=== PATIENT | female | born 1995 | race Caucasian/White ===

== ENCOUNTER 2017-04-02 11:32 | Emergency (ER) | payer OTHER, MEDICAID ==
[2017-04-02] MEDS ORDERED: ASPIRIN 81 MG TABLET, CHEWABLE PO ONE (11:52)
[2017-04-02] MEDS ORDERED: IBUPROFEN 800 MG TABLET PO ONE (11:54)
[2017-04-02] MEDS ORDERED: LIDOCAINE 5% (700 MG) TRANSDERMAL ADH..PATCH TP ONE (11:54)
--- NOTE | 2017-04-02 11:59 | ER Document Report ---
ED Respiratory Problem - General Chief Complaint: Shortness Of Breath Stated Complaint: SHORTNESS OF BREATH Time Seen by Provider: 04/02/17 11:38 Mode of Arrival: Medic Information source: Patient Notes: Patient presents complaining of shortness of breath that started point. Patient started to develop right-sided chest pain around 9:00 this morning. Patient does report cough for the past 2 days. Patient denies any fever, nausea , or vomiting. Patient denies any recent bedrest or immobilization. Patient denies any history of DVT or PE. TRAVEL OUTSIDE OF THE [place] IN LAST 30 DAYS: No - HPI Patient complains to provider of: Chest pain, Cough, Short of breath Onset: This morning Duration: Continuous Quality of pain: Sharp Pain Level: 5 Context: Smoker. denies: DVT, Recent long distance trvl, Recent immobilization , Recent surgery Cough: Nonproductive Associated symptoms: Chest pain/discomfort, Cough, Hurts to breathe, Short of breath. denies: Congestion, Fever, Runny nose, Wheezing Similar symptoms previously: No Recently seen / treated by doctor: No - Related Data Allergies/Adverse Reactions: banana [Banana] Allergy (Severe, Verified 04/02/17 11:43) Anaphylaxis latex [Latex] Allergy (Severe, Verified 04/02/17 11:43) Anaphylaxis Penicillins Allergy (Severe, Verified 04/02/17 11:43) Anaphylaxis pineapple [Pineapple] Allergy (Severe, Verified 04/02/17 11:43) Anaphylaxis HONEYDEW Allergy (Severe, Uncoded 04/02/17 11:43) Anaphylaxis tdap Allergy (Severe, Uncoded 04/02/17 11:43) swelling Past Medical History - General Information source: Patient - Social History Smoking Status: Current Every Day Smoker Cigarette use (# per day): Yes Chew tobacco use (# tins/day): No Smoking Education Provided: Yes - for at least 3 min Frequency of alcohol use: Rare Drug Abuse: None Occupation: fresh foods technician Lives with: Spouse/Significant other Family History: CAD - father [place] 30's, g father [place] at 22 Patient has suicidal ideation: No Patient has homicidal ideation: No - Medical History Notes: Reviewed patient's medication list, patient not currently on any medications. - Past Medical History Cardiac Medical History: Reports: Other - anemia Renal/ Medical History: Denies: Hx Peritoneal Dialysis GI Medical History: Reports: Hx Gastroesophageal Reflux Disease Psychiatric Medical History: Reports: Hx Attention Deficit Hyperactivity Disorder, Hx Bipolar Disorder, Hx Depression - on meds Past Surgical History: Reports: Hx Section, Hx Tubal Ligation - Immunizations Immunizations up to date: Yes Hx Diphtheria, Pertussis, Tetanus Vaccination: Yes - 09/2013 Review of Systems - Review of Systems Constitutional: No symptoms reported. denies: Fever, Recent illness EENT: No symptoms reported Cardiovascular: Chest pain. denies: Syncope, Dizziness Respiratory: Cough, Hurts to breathe, Short of breath Gastrointestinal: No symptoms reported. denies: Abdominal pain, Diarrhea, Nausea, Vomiting Genitourinary: No symptoms reported Female Genitourinary: Irregular period - 5 menses over past 2 months Musculoskeletal: No symptoms reported. denies: Back pain Skin: No symptoms reported Hematologic/Lymphatic: No symptoms reported Neurological/Psychological: No symptoms reported Physical Exam - Vital signs Vitals: Pulse Ox 98 04/02/17 11:40 - General General appearance: Appears well, Alert In distress: None - HEENT Head: Normocephalic, Atraumatic Eyes: Normal Conjunctiva: Normal Nasal: Normal Mouth/Lips: Normal Mucous membranes: Normal Neck: Normal, Supple. No: Lymphadenopathy - Respiratory Respiratory status: No respiratory distress Chest status: Tender, Pain with deep breathing Breath sounds: Normal Chest palpation: Tender - Cardiovascular Rhythm: Regular Heart sounds: S1 appreciated, S2 appreciated Murmur: No - Abdominal Inspection: Normal Distension: No distension Bowel sounds: Normal Tenderness: Nontender Organomegaly: No organomegaly - Back Back: Normal, Nontender. No: CVA tenderness, Vertebra tenderness - Extremities General upper extremity: Normal inspection, Normal ROM General lower extremity: Normal inspection, Normal ROM - Neurological Neuro grossly intact: Yes Cognition: Normal Whipple Coma Scale Eye Opening: Spontaneous Poncho Coma Scale Verbal: Oriented Poncho Coma Scale Motor: Obeys Commands Poncho Coma Scale Total: 15 - Psychological Associated symptoms: Tearful - Skin Skin Temperature: Warm Skin Moisture: Dry Skin Color: Normal Course - Re-evaluation Re-evalutation: 04/02/17 13:30 Patient resting comfortably on stretcher joking with boyfriend. Vital signs stable. Patient PERC negative, The patient has atypical chest pain as the patient's chest pain is not suggestive of pulmonary embolus, cardiac ischemia, aortic dissection, or other serious etiology. Given the extremely low risk of these diagnoses for the test in evaluation for these possibilities does not appear to be indicated at this time. Patient has been instructed to return if the symptoms worsen or change in any way. HEART score 1, Risk: smoking 04/02/17 13:[address] Carter regarding patient presentation, reviewed diagnostic tests, Dr. Carter evaluated patient's EKG and agrees with discharge plan of care. - Vital Signs Vital signs: Temp Pulse Resp BP Pulse Ox 98.1 F 78 11 L 135/64 H 99 04/02/17 12:25 04/02/17 12:25 04/02/17 13:00 04/02/17 12:25 04/02/17 13:00 - Laboratory Result Diagrams: 04/02/17 11:49 04/02/17 11:49 Laboratory results interpreted by me: 04/02/17 04/02/17 11:49 11:49 Hgb 10.3 L Hct 32.2 L MCV 67 L MCH 21.5 L RDW 18.4 H AST 11 L Labs- Entire Visit 04/02/17 04/02/17 04/02/17 11:49 11:49 11:49 WBC 6.1 RBC 4.80 Hgb 10.3 L Hct 32.2 L MCV 67 L MCH 21.5 L MCHC 32.0 RDW 18.4 H Plt Count 208 Seg Neutrophils % 62.6 Lymphocytes % 29.8 Monocytes % 5.5 Eosinophils % 1.5 Basophils % 0.6 Absolute Neutrophils 3.8 Absolute Lymphocytes 1.8 Absolute Monocytes 0.3 Absolute Eosinophils 0.1 Absolute Basophils 0.0 D-Dimer Sodium 139.9 Potassium 4.0 Chloride 107 Carbon Dioxide 23 Anion Gap 10 BUN 8 Creatinine 0.72 Est GFR ( Amer) > 60 Est GFR (Non-Af Amer) > 60 Glucose 85 Calcium 9.2 Total Bilirubin 0.7 Direct Bilirubin 0.3 Indirect Bilirubin Not Reportable Neonat Total Bilirubin Not Reportable AST 11 L ALT 17 Alkaline Phosphatase 73 Creatine Kinase 49 CK-MB (CK-2) 0.41 Troponin I < 0.012 Total Protein 6.5 Albumin 4.0 Serum HCG, Qual 04/02/17 04/02/17 11:49 11:49 WBC RBC Hgb Hct MCV MCH MCHC RDW Plt Count Seg Neutrophils % Lymphocytes % Monocytes % Eosinophils % Basophils % Absolute Neutrophils Absolute Lymphocytes Absolute Monocytes Absolute Eosinophils Absolute Basophils D-Dimer < 0.27 Sodium Potassium Chloride Carbon Dioxide Anion Gap BUN Creatinine Est GFR ( Amer) Est GFR (Non-Af Amer) Glucose Calcium Total Bilirubin Direct Bilirubin Indirect Bilirubin Neonat Total Bilirubin AST ALT Alkaline Phosphatase Creatine Kinase CK-MB (CK-2) Troponin I Total Protein Albumin Serum HCG, Qual NEGATIVE 04/02/17 13:24 - Diagnostic Test Radiology reviewed: Reports reviewed - EKG Interpretation by Me EKG shows normal: Sinus rhythm Rate: Normal Rhythm: Arrthymia Discharge - Discharge Clinical Impression: Anemia Qualifiers: Anemia type: unspecified type Qualified Code(s): D64.9 - Anemia, unspecified Chest pain Qualifiers: Chest pain type: unspecified Qualified Code(s): R07.9 - Chest pain, unspecified Upper respiratory infection Qualifiers: URI type: unspecified URI Qualified Code(s): J06.9 - Acute upper respiratory infection, unspecified Condition: Stable Disposition: HOME, SELF-CARE Instructions: Upper Respiratory Illness ([facility]), Anemia ([facility]), Chest Pain of Unclear Cause ([facility]), Chest Wall Pain ([facility]) Additional Instructions: Return immediately for any new or worsening symptoms Followup with your primary care provider, call tomorrow to make a followup appointment Follow up with your oil filters inspector for evaluation of your irregular menses. You may use over the counter lidocaine patches as prescribed Prescriptions: Naproxen [Naprosyn 250 Nmg Tablet] 1 tab PO BID #14 tablet Forms: Smoking Cessation Education, Return to Work Referrals: [facility] [Provider Group] - Follow up in 3-5 days REZA SHINE MD [Primary Care Provider] - Follow up tomorrow
[2017-04-02 12:04] LABS: ABSOLUTE EOSINOPHILS # (AUTO) 0.1 10^3/uL (0.0-0.6); ABSOLUTE LYMPHOCYTES (AUTO) 1.8 10^3/uL (0.5-4.7); ABSOLUTE MONOCYTES (AUTO) 0.3 10^3/uL (0.1-1.4); ABSOLUTE NEUT (AUTO) 3.8 10^3/uL (1.7-8.2); BASOPHILS % (AUTO) 0.6 % (0-2); EOSINOPHILS % (AUTO) 1.5 % (0-6); HEMATOCRIT 32.2 % (36.0-47.0); HEMOGLOBIN 10.3 g/dL (12.0-15.5); HGB HCT DIFFERENCE -1.3; LYMPHOCYTES % (AUTO) 29.8 % (13-45); MEAN CORPUSCULAR HEMOGLOBIN 21.5 pg (27.0-33.4); MEAN CORPUSCULAR VOLUME 67 fl (80-97); MONOCYTES % (AUTO) 5.5 % (3-13); RED CELL DISTRIBUTION WIDTH 18.4 % (11.5-14.0); SEGMENTED NEUTROPHILS % (AUTO) 62.6 % (42-78); WHITE BLOOD COUNT 6.1 10^3/uL (4.0-10.5)
[2017-04-02 12:17] LABS: ALANINE AMINOTRANSFERASE 17 U/L (9-52); ALKALINE PHOSPHATASE 73 U/L (38-126); ANION GAP 10 (5-19); ASPARTATE AMINO TRANSFERASE 11 U/L (14-36); BILIRUBIN,DIRECT 0.3 mg/dL (0.0-0.4); BILIRUBIN,TOTAL 0.7 mg/dL (0.2-1.3); BLOOD UREA NITROGEN 8 mg/dL (7-20); CALCIUM 9.2 mg/dL (8.4-10.2); CARBON DIOXIDE 23 mmol/L (22-30); CHLORIDE 107 mmol/L (98-107); CREATINE KINASE 49 U/L (30-135); CREATININE RESULT 0.72 mg/dL (0.52-1.25); GLUCOSE 85 mg/dL (75-110); SODIUM 139.9 mmol/L (137-145); TOTAL PROTEIN 6.5 g/dL (6.3-8.2)
[2017-04-02 12:28] LABS: CREATINE KINASE MB 0.41 ng/mL (<4.55)
[2017-04-02 12:32] LABS: TROPONIN I < 0.012 ng/mL
--- NOTE | 2017-04-02 12:34 | RADIOLOGY REPORT (SQ) ---
EXAM DESCRIPTION: CHEST PA/LAT COMPLETED DATE/TIME: 04/02/2017 12:20 pm REASON FOR STUDY: cp, cough COMPARISON: December 2015 EXAM PARAMETERS: NUMBER OF VIEWS: two views TECHNIQUE: Digital Frontal and Lateral radiographic views of the chest acquired. RADIATION DOSE: NA LIMITATIONS: none FINDINGS: LUNGS AND PLEURA: No opacities, masses or pneumothorax. No pleural effusion. MEDIASTINUM AND HILAR STRUCTURES: No masses or contour abnormalities. HEART AND VASCULAR STRUCTURES: Heart normal size. No evidence for failure. BONES: No acute findings. HARDWARE: None in the chest. OTHER: No other significant finding. IMPRESSION: NO SIGNIFICANT RADIOGRAPHIC FINDING IN THE CHEST. TECHNICAL DOCUMENTATION: JOB ID: [id number] [employer]- All Rights Reserved
[2017-04-02] MEDS ORDERED: OXYCODONE-ACETAMINOPHEN 5-325 MG TABLET PO ONE (13:25)
[2017-04-02 14:01] VITALS: BP 100/58
--- NOTE | 2017-04-02 23:06 | EKG REPORT ---
SEVERITY:- OTHERWISE NORMAL ECG - SINUS ARRHYTHMIA, RATE 50-73 : Confirmed by: Violetta Bedoya 02-Apr-2017 23:06:20
== END 2017-04-02 13:51 | disposition home or self-care (01) ==
LOC: ER 11:32
DX: J06.9 Acute upper respiratory infection, unspecified (principal); D64.9 Anemia, unspecified; I49.9 Cardiac arrhythmia, unspecified; R06.02 Shortness of breath; R05 Cough; R07.1 Chest pain on breathing; R07.89 Other chest pain; N92.1 Excessive and frequent menstruation with irregular cycle; F17.210 Nicotine dependence, cigarettes, uncomplicated; Z71.6 Tobacco abuse counseling; Z87.892 Personal history of anaphylaxis; Z91.040 Latex allergy status; Z88.0 Allergy status to penicillin; Z91.013 Allergy to seafood; Z88.7 Allergy status to serum and vaccine; Z82.49 Family history of ischemic heart disease and other diseases of the circulatory system
CPT/HCPCS: 36415; 71020; 80053; 82550; 82553; 84484; 84703; 85025; 85379; 93005; 93010; 99285

== ENCOUNTER 2017-08-19 10:06 | Emergency (ER) | payer MEDICAID, OTHER ==
--- NOTE | 2017-08-19 10:20 | ER Document Report ---
ED Medical Screen (RME) - General Chief Complaint: Vaginal Bleeding Stated Complaint: VAGINAL BLEEDING AND PAIN Time Seen by Provider: 08/19/17 10:19 Notes: 22-year-old female who states some irregular uterine bleeding for 4 weeks. She denies any blood clots. She denies any dysuria. She does state some lightheadedness. She has had a tubal ligation in the past. She does state some runny nose, congestion, and vomiting 2. She denies any diarrhea. She states some intermittent low-grade "fevers". TRAVEL OUTSIDE OF THE [place] IN LAST 30 DAYS: No - Related Data Allergies/Adverse Reactions: banana [Banana] Allergy (Severe, Verified 08/19/17 10:14) Anaphylaxis latex [Latex] Allergy (Severe, Verified 08/19/17 10:14) Anaphylaxis Penicillins Allergy (Severe, Verified 08/19/17 10:14) Anaphylaxis pineapple [Pineapple] Allergy (Severe, Verified 08/19/17 10:14) Anaphylaxis HONEYDEW Allergy (Severe, Uncoded 04/02/17 11:43) Anaphylaxis tdap Allergy (Severe, Uncoded 04/02/17 11:43) swelling flu shot Allergy (Uncoded 08/19/17 10:14) Past Medical History - Past Medical History Cardiac Medical History: Reports: Hx Hypertension Renal/ Medical History: Denies: Hx Peritoneal Dialysis GI Medical History: Reports: Hx Gastroesophageal Reflux Disease Psychiatric Medical History: Reports: Hx Attention Deficit Hyperactivity Disorder, Hx Bipolar Disorder, Hx Depression - on meds Past Surgical History: Reports: Hx Section, Hx Tubal Ligation - Immunizations Immunizations up to date: Yes Hx Diphtheria, Pertussis, Tetanus Vaccination: Yes - 09/2013 Physical Exam - Vital signs Vitals: Temp Pulse Resp BP Pulse Ox 99.1 F 118 H 20 114/69 98 08/19/17 10:12 08/19/17 10:12 08/19/17 10:12 08/19/17 10:12 08/19/17 10:12 Course - Vital Signs Vital signs: Temp Pulse Resp BP Pulse Ox 99.1 F 118 H 20 114/69 98 08/19/17 10:12 08/19/17 10:12 08/19/17 10:12 08/19/17 10:12 08/19/17 10:12
--- NOTE | 2017-08-19 11:18 | ER Document Report ---
ED GI/ - General Chief Complaint: Vaginal Bleeding Stated Complaint: VAGINAL BLEEDING AND PAIN Time Seen by Provider: 08/19/17 10:19 Mode of Arrival: Ambulatory Information source: Patient TRAVEL OUTSIDE OF THE [place] IN LAST 30 DAYS: No - HPI Patient complains to provider of: Pelvic pain, Vaginal bleeding Onset: Other - 4 WEEKS Timing/Duration: Sudden Quality of pain: Cramping Severity at maximum: Moderate Severity in ED: No: Mild Context: denies: , Recent trauma Location: Pelvis - MORE ON LEFT Vaginal bleeding (Compared to normal period): Similar Menstrual period history: denies: : 3 Para: 3 Abortions: 0 Sexual history: Active Associated symptoms: denies: Chills, Diarrhea, Fever, Odor Exacerbated by: Coughing Relieved by: Remaining still Similar symptoms previously: Yes - LAST YEAR Recently seen / treated by doctor: No - Related Data Allergies/Adverse Reactions: banana [Banana] Allergy (Severe, Verified 08/19/17 10:14) Anaphylaxis latex [Latex] Allergy (Severe, Verified 08/19/17 10:14) Anaphylaxis Penicillins Allergy (Severe, Verified 08/19/17 10:14) Anaphylaxis pineapple [Pineapple] Allergy (Severe, Verified 08/19/17 10:14) Anaphylaxis HONEYDEW Allergy (Severe, Uncoded 04/02/17 11:43) Anaphylaxis tdap Allergy (Severe, Uncoded 04/02/17 11:43) swelling flu shot Allergy (Uncoded 08/19/17 10:14) Past Medical History - Social History Smoking Status: Current Every Day Smoker Chew tobacco use (# tins/day): No Frequency of alcohol use: None Drug Abuse: None Lives with: Spouse/Significant other Family History: CAD - father [place] 30's, g father [place] at 22 Patient has suicidal ideation: No Patient has homicidal ideation: No - Past Medical History Cardiac Medical History: Reports: Hx Hypertension Pulmonary Medical History: Reports: None EENT Medical History: Reports: None Neurological Medical History: Reports: None Endocrine Medical History: Reports: None Renal/ Medical History: Reports: None. Denies: Hx Peritoneal Dialysis Malignancy Medical History: Reports: None GI Medical History: Reports: Hx Gastroesophageal Reflux Disease Musculoskeltal Medical History: Reports None Psychiatric Medical History: Reports: Hx Attention Deficit Hyperactivity Disorder, Hx Bipolar Disorder, Hx Depression - on meds Traumatic Medical History: Reports: None Past Surgical History: Reports: Hx Section, Hx Tubal Ligation - Immunizations Immunizations up to date: Yes Hx Diphtheria, Pertussis, Tetanus Vaccination: Yes - 09/2013 Review of Systems - Review of Systems Constitutional: No symptoms reported EENT: No symptoms reported Cardiovascular: No symptoms reported Respiratory: No symptoms reported Gastrointestinal: No symptoms reported Genitourinary: No symptoms reported Female Genitourinary: See HPI Musculoskeletal: No symptoms reported Skin: No symptoms reported Neurological/Psychological: No symptoms reported Physical Exam - Vital signs Vitals: Temp Pulse Resp BP Pulse Ox 99.1 F 118 H 20 114/69 98 08/19/17 10:12 08/19/17 10:12 08/19/17 10:12 08/19/17 10:12 08/19/17 10:12 Interpretation: Tachycardic. No: Hypotensive, Tachypneic, Febrile - General General appearance: Appears well, Alert In distress: None - HEENT Head: Normocephalic Eyes: Normal Conjunctiva: Normal Ears: Normal Nasal: Normal Pharynx: Normal Neck: Normal - Respiratory Respiratory status: No respiratory distress - Cardiovascular Rhythm: Regular, Tachycardia - Abdominal Inspection: Normal Distension: No distension - Genitourinary External exam: Normal Speculum exam: Normal, Cervix closed Vaginal bleeding: None Bimanuel exam: Cervical motion tender, Adnexal tenderness - LEFT - Back Back: Normal - Extremities General upper extremity: Normal inspection General lower extremity: Normal inspection - Neurological Neuro grossly intact: Yes Cognition: Normal Orientation: AAOx4 - Psychological Associated symptoms: Normal affect, Normal mood - Skin Skin Temperature: Warm Skin Moisture: Dry Skin Color: Normal Skin Turgor: Elastic Course - Vital Signs Vital signs: Temp Pulse Resp BP Pulse Ox 99.1 F 118 H 20 114/69 98 08/19/17 10:12 08/19/17 10:12 08/19/17 10:12 08/19/17 10:12 08/19/17 10:12 - Laboratory Result Diagrams: 08/19/17 12:56 08/19/17 12:56 Laboratory results interpreted by me: 08/19/17 08/19/17 08/19/17 11:13 12:56 12:56 Hgb 11.4 L Hct 34.9 L MCV 73 L MCH 24.0 L RDW 16.9 H BUN 3 L Urine Ketones TRACE H Urine Urobilinogen 2.0 H Discharge - Discharge Clinical Impression: Menorrhagia with irregular cycle, Pelvic pain, Cervicitis Condition: Stable Disposition: HOME, SELF-CARE Instructions: Pelvic Pain ([facility]), Menorrhagia ([facility]), Doxycycline ([facility]), Oral Narcotic Medication ([facility]) Additional Instructions: REST, DRINK PLENTY OF FLUIDS. MEDS DIRECTED. FOLLOW UP WITH YOUR PRIMARY CARE PROVIDER OR RETURN TO E.R. IF PROBLEMS. Prescriptions: Hydrocodone/Acetaminophen [Sterling 5-325 mg Tablet] 1 tab PO Q4HP PRN #10 tablet PRN Reason: For Pain Doxycycline Monohydrate 100 mg PO BID #20 tablet
[2017-08-19 11:29] LABS: BACTERIA (WET MOUNT) 3+ BACTERIA SEEN; EPITHELIALS (WET MOUNT) 3+ EPITHELIALS SEEN; T.VAGINALIS (WET MOUNT) NO TRICHOMONAS SEEN; WBCS (WET MOUNT) FEW WBCS SEEN; YEAST (WET MOUNT) NO YEAST SEEN
[2017-08-19 11:42] LABS: APPEARANCE,URINE SLIGHTLY-CLOUDY; BILIRUBIN,URINE NEGATIVE (NEGATIVE); COLOR,URINE YELLOW; GLUCOSE, URINE NEGATIVE (NEGATIVE); KETONES,URINE TRACE mg/dL (NEGATIVE); LEUKOCYTE ESTERASE,URINE NEGATIVE (NEGATIVE); NITRITE,URINE NEGATIVE (NEGATIVE); PROTEIN,URINE NEGATIVE (NEGATIVE); URINE SPECIFIC GRAVITY 1.016
--- NOTE | 2017-08-19 12:21 | RADIOLOGY REPORT (SQ) ---
EXAM DESCRIPTION: U/S NON OB PEL W/DOPPLER COMPLETED DATE/TIME: 08/19/2017 12:11 pm REASON FOR STUDY: L. PELVIC PAIN, MENORRHAGIA, S/P BTL COMPARISON: None. TECHNIQUE: Dynamic and static grayscale images acquired of the pelvis via transabdominal approach an d recorded on PACS. Additional selected color Doppler and spectral images recorded. LIMITATIONS: None. FINDINGS: UTERUS: Contour normal. No mass. ENDOMETRIAL STRIPE: Normal size. Minimal fluid. CERVIX: No nabothian cysts. RIGHT OVARY: No abnormal masses. RIGHT OVARY DOPPLER: Normal arterial vascular flow without evidence for torsion. LEFT OVARY: No abnormal masses. LEFT OVARY DOPPLER: Normal arterial vascular flow without evidence for torsion. FREE FLUID: None noted. OTHER: No other significant finding. MEASUREMENTS: UTERUS: 9.4 x 5.6 x 4.8 cm ENDOMETRIAL STRIPE: 8 mm RIGHT OVARY: 3.2 x 2.2 x 2.5 cm LEFT OVARY: 2.6 x 2.4 x 2.1 cm IMPRESSION: NORMAL PELVIC ULTRASOUND BY TRANSABDOMINAL TECHNIQUE. TECHNICAL DOCUMENTATION: JOB ID: [id number]- All Rights Reserved
[2017-08-19 12:57] LABS: CHLAM PCR NOT DETECTED (NOT DETECT); GON PCR NOT DETECTED (NOT DETECT)
[2017-08-19 13:11] LABS: ABSOLUTE EOSINOPHILS # (AUTO) 0.1 10^3/uL (0.0-0.6); ABSOLUTE LYMPHOCYTES (AUTO) 1.7 10^3/uL (0.5-4.7); ABSOLUTE MONOCYTES (AUTO) 0.6 10^3/uL (0.1-1.4); ABSOLUTE NEUT (AUTO) 6.9 10^3/uL (1.7-8.2); BASOPHILS % (AUTO) 0.3 % (0-2); EOSINOPHILS % (AUTO) 0.9 % (0-6); HEMATOCRIT 34.9 % (36.0-47.0); HEMOGLOBIN 11.4 g/dL (12.0-15.5); LYMPHOCYTES % (AUTO) 17.9 % (13-45); MEAN CORPUSCULAR HGB CONC 32.7 g/dL (32.0-36.0); MEAN CORPUSCULAR VOLUME 73 fl (80-97); MONOCYTES % (AUTO) 6.6 % (3-13); PLATELET COUNT 205 10^3/uL (150-450); RED BLOOD COUNT 4.75 10^6/uL (3.72-5.28); RED CELL DISTRIBUTION WIDTH 16.9 % (11.5-14.0); SEGMENTED NEUTROPHILS % (AUTO) 74.3 % (42-78); TOTAL CELLS COUNTED % (AUTO) 100 %; WHITE BLOOD COUNT 9.3 10^3/uL (4.0-10.5)
[2017-08-19 13:29] LABS: ANION GAP 12 (5-19); BLOOD UREA NITROGEN 3 mg/dL (7-20); CALCIUM 9.6 mg/dL (8.4-10.2); CARBON DIOXIDE 24 mmol/L (22-30); CHLORIDE 104 mmol/L (98-107); GLUCOSE 87 mg/dL (75-110); POTASSIUM 3.9 mmol/L (3.6-5.0); SODIUM 139.5 mmol/L (137-145)
[2017-08-19 15:04] VITALS: BP 91/52
== END 2017-08-19 15:04 | disposition home or self-care (01) ==
LOC: ER 10:06
DX: N92.1 Excessive and frequent menstruation with irregular cycle (principal); N72 Inflammatory disease of cervix uteri; R10.2 Pelvic and perineal pain; R00.0 Tachycardia, unspecified; I10 Essential (primary) hypertension; F17.200 Nicotine dependence, unspecified, uncomplicated; Z88.7 Allergy status to serum and vaccine; Z87.892 Personal history of anaphylaxis; Z91.018 Allergy to other foods; Z91.040 Latex allergy status; Z88.0 Allergy status to penicillin; Z98.51 Tubal ligation status
CPT/HCPCS: 36415; 76856; 80048; 81001; 84703; 85025; 87210; 87491; 87591; 93976; 99284

== ENCOUNTER 2017-12-19 11:52 | Emergency (ER) | payer OTHER ==
[2017-12-19 11:59] VITALS: BP 115/59
--- NOTE | 2017-12-19 12:25 | ER Document Report ---
HPI - HPI Patient complains to provider of: Twisted left ankle Onset: Other - Monday Onset/Duration: Sudden Pain Level: 4 Context: 22-year-old female twisted left ankle on a greasy floor at work. She is swelling and pain to her left ankle although she can walk on it. Associated Symptoms: None Exacerbated by: Walking Relieved by: Denies Similar symptoms previously: No Recently seen / treated by doctor: No - ROS ROS below otherwise negative: Yes Systems Reviewed and Negative: Yes All other systems reviewed and negative - REPRODUCTIVE Reproductive: DENIES: : Past Medical History - General Information source: Patient - Social History Smoking Status: Current Every Day Smoker Frequency of alcohol use: Occasional Drug Abuse: None Occupation: [employer] Lives with: Spouse/Significant other Family History: CAD - father [place] 30's, g father [place] at 22 - Past Medical History Cardiac Medical History: Reports: None Renal/ Medical History: Denies: Hx Peritoneal Dialysis GI Medical History: Reports: Hx Gastroesophageal Reflux Disease Psychiatric Medical History: Reports: Hx Attention Deficit Hyperactivity Disorder, Hx Bipolar Disorder, Hx Depression - on meds Past Surgical History: Reports: Hx Section, Hx Tubal Ligation - Immunizations Immunizations up to date: Yes Hx Diphtheria, Pertussis, Tetanus Vaccination: Yes - 09/2013 Vertical Provider Document - CONSTITUTIONAL Agree With Documented VS: Yes Exam Limitations: No Limitations General Appearance: No Apparent Distress - INFECTION CONTROL TRAVEL OUTSIDE OF THE [place] IN LAST 30 DAYS: No - HEENT HEENT: Normocephalic - NECK Neck: Supple - MUSCULOSKELETAL/EXTREMETIES Musculoskeletal/Extremeties: MAEW, FROM, Tender - Mild swelling to the lateral left malleolus Notes: Nontender base of the fifth metatarsal and medial malleolus - NEURO Level of Consciousness: Awake, Alert Motor/Sensory: No Motor Deficit, No Sensory Deficit - DERM Integumentary: Warm, Dry, No Rash Course - Re-evaluation Re-evalutation: 12/19/17 12:25 Pre-limb x-rays are negative - Vital Signs Vital signs: Temp Pulse Resp BP Pulse Ox 98.7 F 87 16 115/59 L 97 12/19/17 11:58 12/19/17 11:58 12/19/17 11:58 12/19/17 11:58 12/19/17 11:58 Procedures - Immobilization Left Ankle Time completed: 11:30 Pre-Proc Neuro Vasc Exam: Normal Immobilizer type: Ankle stirrup, Crutches Performed by: PCT Post-Proc Neuro Vasc Exam: Normal Alignment checked and good: Yes Discharge - Discharge Clinical Impression: left ankle sprain Condition: Good Disposition: HOME, SELF-CARE Instructions: Ankle Stirrup Splint ([facility]), Use of Crutches ([facility]), Ibuprofen ( General) ([facility]), Sprained Ankle ([facility]) Additional Instructions: stirrup splint and crutches motrin tylenol see orthopedic doctor if persists Prescriptions: Ibuprofen [Motrin 800 mg Tablet] 800 mg PO Q8HP PRN #30 tablet PRN Reason: Forms: Return to Work
[2017-12-19] MEDS ORDERED: IBUPROFEN 800 MG TABLET PO ONE (12:29)
[2017-12-19] MEDS ORDERED: ONDANSETRON 4 MG TAB.RAPDIS PO ONE (12:29)
--- NOTE | 2017-12-19 12:49 | RADIOLOGY REPORT (SQ) ---
EXAM DESCRIPTION: ANKLE LEFT COMPLETE COMPLETED DATE/TIME: 12/19/2017 12:37 pm REASON FOR STUDY: injury COMPARISON: None. NUMBER OF VIEWS: Three views. TECHNIQUE: AP, lateral, and oblique radiographic images acquired of the left ankle. LIMITATIONS: None. FINDINGS: MINERALIZATION: Normal. BONES: No acute fracture or dislocation. No worrisome bone lesions. JOINTS: No effusions. SOFT TISSUES: No soft tissue swelling. No foreign body. OTHER: No other significant finding. IMPRESSION: NEGATIVE STUDY OF THE LEFT ANKLE. NO RADIOGRAPHIC EVIDENCE OF ACUTE INJURY. TECHNICAL DOCUMENTATION: JOB ID: [id number] [employer]- All Rights Reserved Reading location - IP/workstation name: [email or web address]
--- NOTE | 2017-12-19 12:51 | RADIOLOGY REPORT (SQ) ---
EXAM DESCRIPTION: FOOT LEFT COMPLETE COMPLETED DATE/TIME: 12/19/2017 12:37 pm REASON FOR STUDY: injury COMPARISON: None. NUMBER OF VIEWS: Three views. TECHNIQUE: AP, lateral and oblique radiographic images acquired of the left foot. LIMITATIONS: None. FINDINGS: MINERALIZATION: Normal. BONES: No acute fracture or dislocation. No worrisome bone lesions. JOINTS: No effusions. SOFT TISSUES: No soft tissue swelling. No foreign body. OTHER: No other significant finding. IMPRESSION: NEGATIVE STUDY OF THE LEFT FOOT. NO RADIOGRAPHIC EVIDENCE OF ACUTE INJURY. TECHNICAL DOCUMENTATION: JOB ID: [id number] [employer]- All Rights Reserved Reading location - IP/workstation name: [email or web address]
== END 2017-12-19 12:44 | disposition home or self-care (01) ==
LOC: ER 11:52
DX: S93.402A Sprain of unspecified ligament of left ankle, initial encounter (principal); X50.1XXA Overexertion from prolonged static or awkward postures, initial encounter; Y92.511 Restaurant or cafe as the place of occurrence of the external cause; Y99.0 Civilian activity done for income or pay; F17.200 Nicotine dependence, unspecified, uncomplicated
CPT/HCPCS: 99283; 73610; 73630; L1902; S0119

== ENCOUNTER 2019-01-20 12:23 | Emergency (ER) | payer OTHER ==
[2019-01-20 12:30] VITALS: BP 131/72
[2019-01-20] MEDS ORDERED: PROMETHAZINE HCL 25 MG TABLET PO ONE (12:50)
--- NOTE | 2019-01-20 12:52 | ER Document Report ---
ED Medical Screen (RME) - General Chief Complaint: Abdominal Cramping Stated Complaint: ABNORMAL MENSES Time Seen by Provider: 01/20/19 12:50 Mode of Arrival: Ambulatory Information source: Patient Notes: Patient states that her last menstrual period was in November. Patient is concerned she may be although she has had a tubal ligation. Patient denies any urinary symptoms vaginal bleeding or discharge. Patient does complain of right lower pelvic tenderness started yesterday with nausea. I have greeted and performed a rapid initial assessment of this patient. A comprehensive ED assessment and evaluation of the patient, analysis of test results and completion of the medical decision making process will be conducted by additional ED providers. TRAVEL OUTSIDE OF THE [place] IN LAST 30 DAYS: No - Related Data Allergies/Adverse Reactions: banana [Banana] Allergy (Severe, Verified 12/19/17 11:54) Anaphylaxis latex [Latex] Allergy (Severe, Verified 12/19/17 11:54) Anaphylaxis Penicillins Allergy (Severe, Verified 12/19/17 11:54) Anaphylaxis pineapple [Pineapple] Allergy (Severe, Verified 12/19/17 11:54) Anaphylaxis HONEYDEW Allergy (Severe, Uncoded 04/02/17 11:43) Anaphylaxis tdap Allergy (Severe, Uncoded 04/02/17 11:43) swelling flu shot Allergy (Uncoded 08/19/17 10:14) Past Medical History - Past Medical History Cardiac Medical History: Reports: Hx Hypertension Renal/ Medical History: Denies: Hx Peritoneal Dialysis GI Medical History: Reports: Hx Gastroesophageal Reflux Disease Psychiatric Medical History: Reports: Hx Attention Deficit Hyperactivity Disorder, Hx Bipolar Disorder, Hx Depression - on meds Past Surgical History: Reports: Hx Section, Hx Tubal Ligation - Immunizations Immunizations up to date: Yes Hx Diphtheria, Pertussis, Tetanus Vaccination: Yes - 09/2013 Physical Exam - Vital signs Vitals: Temp Pulse Resp BP Pulse Ox 98.6 F 86 16 131/72 H 98 01/20/19 12:27 01/20/19 12:27 01/20/19 12:27 01/20/19 12:01/20/19 12:27 - Abdominal Tenderness: Tender - Right lower pelvic Course - Vital Signs Vital signs: Temp Pulse Resp BP Pulse Ox 98.6 F 86 16 131/72 H 98 01/20/19 12:27 01/20/19 12:27 01/20/19 12:27 01/20/19 12:27 01/20/19 12:27
[2019-01-20 14:25] LABS: ABSOLUTE EOSINOPHILS # (AUTO) 0.1 10^3/uL (0.0-0.6); ABSOLUTE LYMPHOCYTES (AUTO) 1.6 10^3/uL (0.5-4.7); ABSOLUTE MONOCYTES (AUTO) 0.5 10^3/uL (0.1-1.4); ABSOLUTE NEUT (AUTO) 4.4 10^3/uL (1.7-8.2); BASOPHILS % (AUTO) 0.4 % (0-2); HEMATOCRIT 36.1 % (36.0-47.0); HEMOGLOBIN 11.5 g/dL (12.0-15.5); LYMPHOCYTES % (AUTO) 24.1 % (13-45); MEAN CORPUSCULAR HGB CONC 31.8 g/dL (32.0-36.0); MEAN CORPUSCULAR VOLUME 69 fl (80-97); MONOCYTES % (AUTO) 7.1 % (3-13); PLATELET COUNT 230 10^3/uL (150-450); RED BLOOD COUNT 5.23 10^6/uL (3.72-5.28); RED CELL DISTRIBUTION WIDTH 19.3 % (11.5-14.0); SEGMENTED NEUTROPHILS % (AUTO) 67.4 % (42-78); TOTAL CELLS COUNTED % (AUTO) 100 %; WHITE BLOOD COUNT 6.5 10^3/uL (4.0-10.5)
[2019-01-20 14:48] LABS: ALANINE AMINOTRANSFERASE 14 U/L (9-52); ALBUMIN 4.5 g/dL (3.5-5.0); ALKALINE PHOSPHATASE 73 U/L (38-126); ANION GAP 12 (5-19); ASPARTATE AMINO TRANSFERASE 14 U/L (14-36); BILIRUBIN,DIRECT 0.2 mg/dL (0.0-0.4); BILIRUBIN,TOTAL 0.4 mg/dL (0.2-1.3); BLOOD UREA NITROGEN 14 mg/dL (7-20); CALCIUM 9.5 mg/dL (8.4-10.2); CARBON DIOXIDE 26 mmol/L (22-30); CHLORIDE 104 mmol/L (98-107); POTASSIUM 4.6 mmol/L (3.6-5.0); SODIUM 141.5 mmol/L (137-145); TOTAL PROTEIN 7.5 g/dL (6.3-8.2)
[2019-01-20 14:52] LABS: GLUCOSE 62 mg/dL (75-110)
[2019-01-20 15:24] LABS: AMORPHOUS SEDIMENT,URINE TRACE /HPF; APPEARANCE,URINE SLIGHTLY-CLOUDY; BILIRUBIN,URINE NEGATIVE (NEGATIVE); COLOR,URINE YELLOW; GLUCOSE, URINE NEGATIVE (NEGATIVE); KETONES,URINE NEGATIVE (NEGATIVE); LEUKOCYTE ESTERASE,URINE NEGATIVE (NEGATIVE); NITRITE,URINE NEGATIVE (NEGATIVE); PROTEIN,URINE NEGATIVE (NEGATIVE); URINE SPECIFIC GRAVITY 1.025
[2019-01-20 16:50] LABS: CHLAM PCR NOT DETECTED (NOT DETECT); GON PCR NOT DETECTED (NOT DETECT)
== END 2019-01-20 14:51 | disposition left against medical advice (07) ==
LOC: ER 12:23
DX: R10.819 Abdominal tenderness, unspecified site (principal); R11.0 Nausea; I10 Essential (primary) hypertension; Z91.018 Allergy to other foods; Z87.892 Personal history of anaphylaxis; Z91.040 Latex allergy status; Z88.0 Allergy status to penicillin; Z88.7 Allergy status to serum and vaccine; Z87.19 Personal history of other diseases of the digestive system; Z98.51 Tubal ligation status; Z53.20 Procedure and treatment not carried out because of patient's decision for unspecified reasons
CPT/HCPCS: 36415; 80053; 81001; 84703; 85025; 87491; 87591; 99284

== ENCOUNTER 2019-02-28 00:03 | Emergency (ER) | payer OTHER ==
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
[2019-02-28 01:05] LABS: ABSOLUTE EOSINOPHILS # (AUTO) 0.1 10^3/uL (0.0-0.6); ABSOLUTE MONOCYTES (AUTO) 0.5 10^3/uL (0.1-1.4); ABSOLUTE NEUT (AUTO) 6.1 10^3/uL (1.7-8.2); BASOPHILS % (AUTO) 0.4 % (0-2); EOSINOPHILS % (AUTO) 0.8 % (0-6); HEMATOCRIT 33.5 % (36.0-47.0); HEMOGLOBIN 10.9 g/dL (12.0-15.5); LYMPHOCYTES % (AUTO) 22.9 % (13-45); MEAN CORPUSCULAR HEMOGLOBIN 22.8 pg (27.0-33.4); MEAN CORPUSCULAR HGB CONC 32.4 g/dL (32.0-36.0); MEAN CORPUSCULAR VOLUME 70 fl (80-97); MONOCYTES % (AUTO) 5.3 % (3-13); PLATELET COUNT 246 10^3/uL (150-450); RED BLOOD COUNT 4.76 10^6/uL (3.72-5.28); RED CELL DISTRIBUTION WIDTH 19.9 % (11.5-14.0); SEGMENTED NEUTROPHILS % (AUTO) 70.6 % (42-78); TOTAL CELLS COUNTED % (AUTO) 100 %; WHITE BLOOD COUNT 8.6 10^3/uL (4.0-10.5)
[2019-02-28 01:25] LABS: ALANINE AMINOTRANSFERASE 8 U/L (9-52); ALBUMIN 4.3 g/dL (3.5-5.0); ALKALINE PHOSPHATASE 77 U/L (38-126); ANION GAP 7 (5-19); ASPARTATE AMINO TRANSFERASE 26 U/L (14-36); BILIRUBIN,DIRECT 0.4 mg/dL (0.0-0.4); BILIRUBIN,TOTAL 0.4 mg/dL (0.2-1.3); BLOOD UREA NITROGEN 8 mg/dL (7-20); CALCIUM 9.2 mg/dL (8.4-10.2); CARBON DIOXIDE 26 mmol/L (22-30); CHLORIDE 106 mmol/L (98-107); GLUCOSE 80 mg/dL (75-110); TOTAL PROTEIN 7.1 g/dL (6.3-8.2)
--- NOTE | 2019-02-28 01:48 | RADIOLOGY REPORT (SQ) ---
CLINICAL HISTORY: vaginal bleeding, eval ectopic COMPARISON: None. TECHNIQUE: US TRANSVAGINAL on 02/28/2019 12:44 AM CDT FINDINGS: Uterus measures 8.3 cm cervix measures 2.1 cm. Right ovary is unremarkable with patent flow. Left ovary is not seen. IMPRESSION: No evidence of IUP. Ectopic is not seen nor can be excluded.
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
[2019-02-28 02:47] VITALS: BP 116/65
== END 2019-02-28 03:07 | disposition home or self-care (01) ==
LOC: ER 00:03
DX: S93.412A Sprain of calcaneofibular ligament of left ankle, initial encounter (principal); S60.211A Contusion of right wrist, initial encounter; S30.0XXA Contusion of lower back and pelvis, initial encounter; M25.551 Pain in right hip; M79.641 Pain in right hand; Y04.8XXA Assault by other bodily force, initial encounter; Z87.892 Personal history of anaphylaxis; F17.210 Nicotine dependence, cigarettes, uncomplicated; I10 Essential (primary) hypertension; Z91.018 Allergy to other foods; Z91.040 Latex allergy status; Z88.0 Allergy status to penicillin; Z88.7 Allergy status to serum and vaccine
CPT/HCPCS: 99284; 86900; 86901; 36415; 84702; 85025; 80053; 73610; 73030; 73110; 76817; L1902

== ENCOUNTER 2020-06-20 17:24 | Emergency (ER) | payer OTHER ==
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
[2020-06-20 18:46] LABS: ABSOLUTE EOSINOPHILS # (AUTO) 0.1 10^3/uL (0.0-0.6); ABSOLUTE LYMPHOCYTES (AUTO) 1.4 10^3/uL (0.5-4.7); ABSOLUTE MONOCYTES (AUTO) 0.6 10^3/uL (0.1-1.4); ABSOLUTE NEUT (AUTO) 6.5 10^3/uL (1.7-8.2); BASOPHILS % (AUTO) 0.3 % (0-2); EOSINOPHILS % (AUTO) 1.3 % (0-6); HEMATOCRIT 34.4 % (36.0-47.0); HEMOGLOBIN 10.8 g/dL (12.0-15.5); LYMPHOCYTES % (AUTO) 16.4 % (13-45); MEAN CORPUSCULAR HEMOGLOBIN 21.1 pg (27.0-33.4); MEAN CORPUSCULAR HGB CONC 31.5 g/dL (32.0-36.0); MEAN CORPUSCULAR VOLUME 67 fl (80-97); MONOCYTES % (AUTO) 7.4 % (3-13); PLATELET COUNT 211 10^3/uL (150-450); RED BLOOD COUNT 5.13 10^6/uL (3.72-5.28); RED CELL DISTRIBUTION WIDTH 17.9 % (11.5-14.0); SEGMENTED NEUTROPHILS % (AUTO) 74.6 % (42-78); TOTAL CELLS COUNTED % (AUTO) 100 %; WHITE BLOOD COUNT 8.7 10^3/uL (4.0-10.5)
[2020-06-20 19:00] LABS: APPEARANCE,URINE SLIGHTLY-CLOUDY; BILIRUBIN,URINE NEGATIVE (NEGATIVE); COLOR,URINE YELLOW; GLUCOSE, URINE NEGATIVE (NEGATIVE); KETONES,URINE NEGATIVE (NEGATIVE); LEUKOCYTE ESTERASE,URINE NEGATIVE (NEGATIVE); NITRITE,URINE NEGATIVE (NEGATIVE); PROTEIN,URINE NEGATIVE (NEGATIVE); URINE SPECIFIC GRAVITY 1.016
[2020-06-20 19:03] LABS: ALBUMIN 4.5 g/dL (3.5-5.0); ALKALINE PHOSPHATASE 73 U/L (38-126); ANION GAP 12 (5-19); ASPARTATE AMINO TRANSFERASE 16 U/L (14-36); BILIRUBIN,DIRECT 0.2 mg/dL (0.0-0.4); BILIRUBIN,TOTAL 0.4 mg/dL (0.2-1.3); BLOOD UREA NITROGEN 10 mg/dL (7-20); CALCIUM 9.4 mg/dL (8.4-10.2); CARBON DIOXIDE 24 mmol/L (22-30); CHLORIDE 105 mmol/L (98-107); GLUCOSE 96 mg/dL (75-110); POTASSIUM 4.4 mmol/L (3.6-5.0)
--- NOTE | 2020-06-20 19:05 | RADIOLOGY REPORT (SQ) ---
EXAM DESCRIPTION: FOOT RIGHT COMPLETE IMAGES COMPLETED DATE/TIME: 06/20/2020 6:48 pm REASON FOR STUDY: Pain to foot, also to the third toe, foot red COMPARISON: None. NUMBER OF VIEWS: Three views. TECHNIQUE: AP, lateral and oblique radiographic images acquired of the right foot. LIMITATIONS: None. FINDINGS: MINERALIZATION: Normal. BONES: No acute fracture or dislocation. No worrisome bone lesions. JOINTS: No effusions. SOFT TISSUES: Forefoot swelling. No foreign body. OTHER: No other significant finding. IMPRESSION: Forefoot swelling. TECHNICAL DOCUMENTATION: JOB ID: [id number] 2010 [employer]- All Rights Reserved Reading location - IP/workstation name: [email or web address]
--- NOTE | 2020-06-20 20:57 | ER Document Report ---
ED General - General Chief Complaint: Wound Infection Stated Complaint: Infected foot Time Seen by Provider: 06/20/20 17:53 Primary Care Provider: SANYA TATUM [Primary Care Provider] - Follow up as needed LAYLA FROST MD [HONORARY] - 06/22/20 Mode of Arrival: Wheelchair TRAVEL OUTSIDE OF THE [place] IN LAST 30 DAYS: No - HPI Context: This is a 25-year-old female presenting to the emergency department complaining of pain and swelling in her right foot. Patient states the symptoms started approximately 2 days ago. Patient states the top of her right foot with one of his falls 2 days ago which created a punctate injury with it according to the patient. Patient states that she has been trying to avoid coming to the hospital and has been soaking the foot and squeezing the foot and has been able to express some purulent material from the whole where the injury happened. Patient states that a pain is worse now since she stepped in a hole prior to presentation and twisted her foot. Patient is concerned she may have broken one of her toes. Also the patient states that the foot is more erythematous now involving part of the dorsum of the foot as well as the base of the second and third right toes. Patient states the pain is a 3 out of 5 and describes it as throbbing. Patient states there are no alleviating factors and her symptoms are exacerbated by touch and weightbearing. Patient is allergic to penicillin and amoxicillin. As well as Tdap. Associated symptoms: Other - See HPI Exacerbated by: Other - See HPI Relieved by: Other - See HPI - Related Data Allergies/Adverse Reactions: banana [Banana] Allergy (Severe, Verified 02/28/19 00:10) Anaphylaxis latex [Latex] Allergy (Severe, Verified 02/28/19 00:10) Anaphylaxis Penicillins Allergy (Severe, Verified 02/28/19 00:10) Anaphylaxis pineapple [Pineapple] Allergy (Severe, Verified 02/28/19 00:10) Anaphylaxis HONEYDEW Allergy (Severe, Uncoded 02/28/19 00:10) Anaphylaxis tdap Allergy (Severe, Uncoded 02/28/19 00:10) swelling flu shot Allergy (Uncoded 02/28/19 00:10) Past Medical History - General Information source: Patient - Social History Smoking Status: Unknown if Ever Smoked Lives with: Spouse/Significant other Family History: Reviewed & Not Pertinent, CAD - father [place] 30's, g father [place] at 22 Patient has suicidal ideation: No Patient has homicidal ideation: No - Past Medical History Cardiac Medical History: Reports: Hx Hypertension Renal/ Medical History: Denies: Hx Peritoneal Dialysis GI Medical History: Reports: Hx Gastroesophageal Reflux Disease Skin Medical History: Reports Hx Cellulitis Psychiatric Medical History: Reports: Hx Attention Deficit Hyperactivity Disorder, Hx Bipolar Disorder, Hx Depression - on meds Past Surgical History: Reports: Hx Section, Hx Tubal Ligation - Immunizations Immunizations up to date: Yes Hx Diphtheria, Pertussis, Tetanus Vaccination: Yes - 09/2013 Review of Systems - Review of Systems Constitutional: No symptoms reported EENT: No symptoms reported Cardiovascular: No symptoms reported Respiratory: No symptoms reported Gastrointestinal: No symptoms reported Genitourinary: No symptoms reported Female Genitourinary: No symptoms reported Musculoskeletal: Other - Foot pain and swelling Skin: See HPI Hematologic/Lymphatic: No symptoms reported Neurological/Psychological: No symptoms reported -: Yes All other systems reviewed and negative Physical Exam - Vital signs Vitals: Temp Pulse Resp BP Pulse Ox 99.0 F 93 18 116/62 98 06/20/20 17:36 06/20/20 17:36 06/20/20 17:36 06/20/20 17:36 06/20/20 17:36 - Notes Notes: CONSTITUTIONAL [Vital signs reviewed, Patient appears comfortable, Alert and oriented X 3, Normal stature.] HEAD [Atraumatic, Normocephalic.] EYES [Eyes are normal to inspection, No discharge from eyes, Extraocular muscles intact, Sclera are normal, Conjunctiva are normal.] ENT , Nose examination normal, Mouth normal to inspection.] NECK [Normal ROM, No jugular venous distention, No meningeal signs, no carotid bruit.] RESPIRATORY CHEST [Chest is nontender, Breath sounds normal, No respiratory distress.] CARDIOVASCULAR [RRR, No murmurs, Normal S1 S2, No rub, No gallop.] ABDOMEN [Abdomen is nontender, No pulsatile masses, No other masses, Bowel sounds normal, No distension, No peritoneal signs, No hernias.] BACK [There is no CVA Tenderness, There is no tenderness to palpation, Normal inspection.] UPPER EXTREMITY [Inspection normal, No cyanosis, No clubbing, No edema, 2+ radial pulses.] LOWER EXTREMITY Lower extremity exam is significant for swelling on the dorsal surface of the right foot there is a punctate lesion at the base of the second toe that is expressing some serous and mildly purulent discharge spontaneously the surrou nding area of the foot on the dorsal surface is significant for erythema and edema there is no definite fluctuance, pointing or induration palpation area does elicit pain. Palpation of the area does not elicit expression of purulent material from the puncture site. NEURO [No focal motor deficits, No focal sensory deficits, Speech normal.] SKIN [Skin is warm, Skin is dry, Skin is normal color.] PSYCHIATRIC [Normal affect. ] Course - Re-evaluation Re-evalutation: 06/20/20 21:25 Results of ED MSE discussed with patient. Options for treatment including ultrasound and possible incision and drainage discussed with patient. Patient states that she would just as soon avoid any type of incision and drainage. This MD feels that this is not unreasonable given that she has a area that is spontaneously draining and the patient and this physician agreed to start initially with pain control and antibiotic treatment and crutches to alleviate pain. Patient was instructed very specifically about signs and symptoms to look for and reasons to return to the emergency department, such as worsening pain, worsening swelling, worsening erythema or edema. Patient was encouraged to keep using warm moist compresses but not to submerge the wound under water. All questions were answered prior to discharge. Patient states she understood emergency signs and symptoms as they were explained to her. Patient states she had no further questions at time of discharge. - Vital Signs Vital signs: Temp Pulse Resp BP Pulse Ox 99.0 F 93 18 116/62 98 06/20/20 17:36 06/20/20 17:36 06/20/20 17:36 06/20/20 17:36 06/20/20 17:36 - Laboratory Result Diagrams: 06/20/20 18:25 06/20/20 18:25 Laboratory results interpreted by me: 06/20/20 06/20/20 18:25 18:35 Hgb 10.8 L Hct 34.4 L MCV 67 L MCH 21.1 L MCHC 31.5 L RDW 17.9 H Urine Urobilinogen 2.0 H Urine Ascorbic Acid 20 H - Diagnostic Test Radiology reviewed: Reports reviewed Discharge - Discharge Clinical Impression: Cellulitis of right foot Condition: Stable Disposition: HOME, SELF-CARE Additional Instructions: Return to the Emergency Department without delay if any worse. As we discussed, you have opted to treat his infection with antibiotics and warm moist compresses given that there is a area of spontaneous drainage already present. We discussed the option of performing an ultrasound to look for the a collection of drainable fluid and you decided at this point to just treat with antibiotics. If your symptoms, such as pain, redness, swelling worsen and/or you stop having spontaneous drainage from the site in your foot, return to the emergency department immediately for further evaluation. Weight bearing as tolerated on your right foot. HOME CARE INSTRUCTIONS & INFORMATION: Thank you for choosing us for your medical needs. We hope you're satisfied with the care you received. After you leave, you must properly care for your problem and, at the same time, observe its progress. Any condition can change. Some illnesses can change rapidly over hours or days. If your condition worsens, return to the Emergency Department or see your physician promptly. ABOUT YOUR X-RAYS AND EKG'S: If you had an EKG or X-rays taken, they have been read by the Emergency Physician. The X-rays and EKG's will also be read by a Radiologist or Director Regulatory Affairs within 24 hours. If discrepancies are noted, you will be notified by telephone. Please be certain the ED has a correct telephone number & address where you can be reached. Also, realize that some fractures or abnormalities do not show up on initial X-rays. If your symptoms continue, see your physician. ABOUT YOUR LABORATORY TEST: If you had laboratory tests, the results have been reviewed by the Emergency Physician. Some test results (for example cultures) may not be available for several days. You will be contacted if any test result shows you need additional treatment. Please be certain the ED has a correct telephone number and address where you can be reached. ABOUT YOUR MEDICATIONS: You will receive instructions on how to take your medicine on the prescription label you receive. Additional information may be provided by the Pharmacy. If you have questions afterwards, call the ED for clarification or further instructions. Some prescribed medications may cause drowsiness. Do not perform tasks such as driving a car or operating machinery without consulting your Pharmacist. If you feel you need a refill of pain medication, your condition will need re-evaluation. Please do not call for a refill of any medication. ABOUT YOUR SIGNATURE: Signature of this document acknowledges to followin. Understanding that you received emergency treatment and that you may be released before al medical problems are known or treated. Please be certain the ED has a correct phone number & address where you can be reached. 2. Acknowledgement that you will arrange for follow-up care as recommended. 3. Authorization for the Emergency Physician to provide information to your follow-up Physician in order to maximize your care. AT ANY TIME, IF YOUR SYMPTOMS CHANGE SIGNIFICANTLY OR WORSEN OR YOU DEVELOP NEW SYMPTOMS, RETURN TO THE EMERGENCY DEPARTMENT IMMEDIATELY FOR RE-EVALUATION. OUR GOAL IS TO PROVIDE EXCELLENT MEDICAL CARE! WE HOPE THAT WE HAVE MET YOUR EXPECTATIONS DURING YOUR EMERGENCY DEPARTMENT VISIT AND THAT YOU FEEL YOU HAVE RECEIVED EXCELLENT CARE! Cellulitis You have an infection of your skin and underlying soft tissues called c ellulitis. This is due to bacteria, which can enter through any break in the skin, or even through an irritated hair follicle. Untreated, cellulitis will usually worsen. Antibiotics are required. Usually, warm packs or warm soaks, and elevation of the infected area are recommended. You should start getting better within 24 to 36 hours. Most infections respond quickly to the right medication. Follow-up care is important, however, to check for abscess (boil) formation, unsuspected foreign body, or resistant infection. If you develop fever, chills, or if the area of infection is becoming rapidly more swollen or painful, call the doctor at once. Prescriptions: Hydrocodone/Acetaminophen [Oakes 5-325 mg Tablet] 1 tab PO Q6HP PRN #10 tablet PRN Reason: pain Clindamycin HCl [Cleocin 150 mg Capsule] 450 mg PO TID 7 Days #63 capsule Referrals: SANYA TATUM [Primary Care Provider] - Follow up as needed LAYLA FROST MD [HONORARY] - 06/22/20
[2020-06-20] MEDS ORDERED: CLINDAMYCIN HCL 150 MG CAPSULE PO ONE (21:02)
[2020-06-20] MEDS ORDERED: HYDROCODONE/ACETAMINOPHEN 5-325 MG (6 TAB/ER DISP) PO PRN (21:03)
[2020-06-20] MEDS ORDERED: HYDROCODONE/ACETAMINOPHEN 5-325 MG TABLET PO ONE (21:03)
[2020-06-21 04:53] VITALS: BP 105/53
== END 2020-06-20 21:45 | disposition home or self-care (01) ==
LOC: ER 17:24
DX: L03.115 Cellulitis of right lower limb (principal); S91.134A Puncture wound without foreign body of right lesser toe(s) without damage to nail, initial encounter; W19.XXXA Unspecified fall, initial encounter; I10 Essential (primary) hypertension; Z88.0 Allergy status to penicillin; Z88.7 Allergy status to serum and vaccine; Z87.892 Personal history of anaphylaxis; Z91.018 Allergy to other foods; Z91.040 Latex allergy status
CPT/HCPCS: 36415; 80053; 81001; 81025; 85025; 99284